=== PATIENT | female | born 1995 | race Caucasian/White ===

== ENCOUNTER 2017-06-28 18:14 | Emergency (ER) | payer OTHER ==
[~2017-06-28] VITALS: Ht 162.6 cm; Wt 106.6 kg
[2017-06-28 18:33] VITALS: BP_SYST 127
[2017-06-28 19:10] VITALS: BP_SYST 125
== END 2017-06-28 19:10 | disposition home or self-care (01) ==
LOC: SED 18:14
DX: S63.501A Unspecified sprain of right wrist, initial encounter (principal); W19.XXXA Unspecified fall, initial encounter; Y93.89 Activity, other specified; Y92.89 Other specified places as the place of occurrence of the external cause; Y99.8 Other external cause status; Z88.8 Allergy status to other drugs, medicaments and biological substances
CPT/HCPCS: 99284